=== PATIENT | male | born 1960 ===

== ENCOUNTER 2019-10-09 09:04 | Outpatient (CLI) | payer MEDICAID ==
[2019-10-09] MEDS ORDERED: iohexol 300mg/ml 100ml inj. ONE (09:09)
== END 2019-10-09 23:59 | disposition home or self-care (01) ==
LOC: 64 CT 09:04
PROVIDERS: ATTEND Specialist
DX: M19.071 Primary osteoarthritis, right ankle and foot (principal); M62.571 Muscle wasting and atrophy, not elsewhere classified, right ankle and foot
CPT/HCPCS: 73701; Q9967